=== PATIENT | male | born 1990 | race Two or more races ===

== ENCOUNTER 2017-06-18 08:34 | Emergency (ER) | payer BC, OTHER ==
[~2017-06-18] VITALS: Ht 177.8 cm; Wt 131.5 kg
[~2017-06-18 08:34] MED LIST: IBUPROFEN600 MG ORAL; NORCO 5-325 TA1 EACH ORAL
[2017-06-18] MEDS ORDERED: NKM (08:45)
[2017-06-18 08:54] VITALS: BP 120/77
--- NOTE | 2017-06-18 09:31 | Emergency Room Report ---
History of Present Illness General Chief Complaint: General Complaint Source: Patient Present Illness HPI Patient states that yesterday evening he noted some discomfort when he was sitting in his rectal area. He states that then this morning when he had a bowel movement and when he was sitting he noted more discomfort. He states that he notes that see then used a mirror to see his rectal and notes that there is a lump there. He denies pain at this time. He states if he puts direct pressure on the area it is tender. He denies fever or chills. He denies nausea or vomiting. He denies a history of constipation. He has no other complaints. Allergies: Coded Allergies: No Known Allergies (Unverified , 09/24/14) Patient History Past Medical History: none Social History: Reports: smoking - occassional, alcohol use - occasional, drug use - occasional THC Reviewed Nursing Documentation: PMH: Agreed; PSxH: Agreed Nursing Documentation-PMH Past Medical History: No Stated History Review of Systems All Other Systems: negative except mentioned in HPI Physical Exam Vital Signs Date Time Temp Pulse Resp B/P (MAP) Pulse Ox O2 Delivery O2 Flow Rate FiO2 06/18/17 08:41 98.2 86 16 120/77 96 Room Air 98.2 Sp02 EP Interpretation: reviewed, normal General Appearance: no apparent distress, alert, GCS 15, non-toxic Head: normocephalic, atraumatic Eyes: bilateral eye normal inspection, bilateral eye PERRL ENT: hearing grossly normal, normal pharynx, no angioedema, normal voice Neck: normal inspection Respiratory: no respiratory distress, no retraction, no accessory muscle use, speaking full sentences Rectal: normal rectal tone, hemorrhoids - nickel sized external hemorrhoid at 5 O'clock. Not thrombosed. Mild TTP. No erythmea. Musculoskeletal: back normal, gait/station normal, normal range of motion, non- tender Neurologic: alert, oriented x3, responsive, motor strength/tone normal, sensory intact, speech normal Psychiatric: judgement/insight normal, memory normal, mood/affect normal, no suicidal/homicidal ideation Skin: normal color, no rash, warm/dry, well hydrated Medical Decision Making Diagnostic Impression: Primary Impression: Hemorrhoid ER Course This patient has a large obvious hemorrhoid on physical exam. It does not thrombosed. There is no evidence of perianal or perirectal abscess. The patient was educated on not bearing down, using a doughnut shaped pillow to sit on and a high fiber diet. I will also place the patient on Anusol and a stool softener. At this time, I did not identify an emergency medical condition. The patient is given close return precautions and follow-up instructions. Last Vital Signs Date Time Temp Pulse Resp B/P (MAP) Pulse Ox O2 Delivery O2 Flow Rate FiO2 06/18/17 08:54 98.2 16 120/77 96 Room Air 98.2 06/18/17 08:41 86 Status: improved Disposition: HOME, SELF-CARE Condition: Improved Referrals: LEAH PRUITT,REFERRING (PCP) ISA MCKEON D.O. June 18, 2017 09:31
[2017-06-18] MEDS ORDERED: TUCKS1 EAC1 TP (09:34)
[2017-06-18] MEDS ORDERED: ANUSOL-HC25 MG RECTAL (09:34)
[2017-06-18] MEDS ORDERED: MIRALAX17 G2 ORAL (09:34)
[2017-06-18] MEDS ORDERED: COLACE100 MG ORAL (09:34)
[2017-06-18 09:46] VITALS: BP 120/77
== END 2017-06-18 09:48 | disposition home or self-care (01) ==
LOC: EMR 09:16
DX: K64.4 Residual hemorrhoidal skin tags (principal)
CPT/HCPCS: 99283